=== PATIENT | male | born 1985 | race Caucasian/White ===

== ENCOUNTER 2017-09-09 08:18 | Day surgery (SDC) | payer OTHER ==
--- NOTE | 2017-09-06 09:15 | EKG REPORT ---
SEVERITY:- ABNORMAL ECG - SINUS RHYTHM PROBABLE LEFT VENTRICULAR HYPERTROPHY : Confirmed by: Dorinda Lopez MD 06-Sep-2017 09:15:13
[2017-09-06 09:57] LABS: HEMOGLOBIN 15.7 g/dL (13.5-17.0); MEAN CORPUSCULAR HEMOGLOBIN 30.3 pg (27.0-33.4); MEAN CORPUSCULAR VOLUME 89 fl (80-97); PLATELET COUNT 357 10^3/uL (150-450); RED BLOOD COUNT 5.17 10^6/uL (4.35-5.55); RED CELL DISTRIBUTION WIDTH 13.2 % (11.5-14.0); WHITE BLOOD COUNT 7.4 10^3/uL (4.0-10.5)
--- NOTE | 2017-09-06 09:57 | RADIOLOGY REPORT (SQ) ---
EXAM DESCRIPTION: CHEST PA/LATERAL COMPLETED DATE/TIME: 09/06/2017 9:38 am REASON FOR STUDY: PRE-OP COMPARISON: None. EXAM PARAMETERS: NUMBER OF VIEWS: two views TECHNIQUE: Digital Frontal and Lateral radiographic views of the chest acquired. RADIATION DOSE: NA LIMITATIONS: none FINDINGS: LUNGS AND PLEURA: No opacities, masses or pneumothorax. No pleural effusion. MEDIASTINUM AND HILAR STRUCTURES: No masses or contour abnormalities. HEART AND VASCULAR STRUCTURES: Heart normal size. No evidence for failure. BONES: No acute findings. HARDWARE: None in the chest. OTHER: No other significant finding. IMPRESSION: NO SIGNIFICANT RADIOGRAPHIC FINDING IN THE CHEST. TECHNICAL DOCUMENTATION: JOB ID: [id number] [employer]- All Rights Reserved Reading location - IP/workstation name: [email or web address]
[2017-09-06 10:00] LABS: APPEARANCE,URINE TURBID; BILIRUBIN,URINE NEGATIVE (NEGATIVE); GLUCOSE, URINE NEGATIVE (NEGATIVE); KETONES,URINE NEGATIVE (NEGATIVE); LEUKOCYTE ESTERASE,URINE NEGATIVE (NEGATIVE); NITRITE,URINE NEGATIVE (NEGATIVE); PROTEIN,URINE 30 mg/dL (NEGATIVE); URINE SPECIFIC GRAVITY 1.023
[2017-09-06 10:02] LABS: COLOR,URINE YELLOW
[2017-09-06 10:20] LABS: ANION GAP 14 (5-19); BLOOD UREA NITROGEN 18 mg/dL (7-20); CARBON DIOXIDE 28 mmol/L (22-30); CHLORIDE 102 mmol/L (98-107); GLUCOSE 99 mg/dL (75-110); POTASSIUM 4.3 mmol/L (3.6-5.0); SODIUM 143.9 mmol/L (137-145)
[~2017-09-09 08:18] MED LIST: CEFAZOLIN 2 GM/D5W RTU 2 GM/50 ML RTUPB IV PRN; LACTATED RINGERS 1000 ML IV PRN; LIDOCAINE 0.5% INJ-PF (5 MG/ML) 50 ML SDV SUBCUT PRN
[2017-09-09] MEDS ORDERED: PROPOFOL INJ 200 MG/20 ML VIAL IV ONE (09:50)
[2017-09-09] MEDS ORDERED: ACETAMINOPHEN 1,000 MG/100 ML RTUPB IV ONE (09:50)
[2017-09-09] MEDS ORDERED: FENTANYL CITRATE INJ/PF 100 MCG/2 ML AMPUL ONE (09:50)
[2017-09-09] MEDS ORDERED: MIDAZOLAM 2 MG/2 ML INJ ONE (09:50)
[2017-09-09] MEDS ORDERED: ONDANSETRON HCL INJ/PF 4 MG/2 ML SDV ONE (09:50)
[2017-09-09] MEDS ORDERED: BUPIVACAINE HCL/DEX-WATER/PF 15 MG/2 ML AMPULE ONE (10:32)
[2017-09-09] MEDS ORDERED: OXYCODONE-ACETAMINOPHEN 5-325 MG TABLET PO PRN ×2 (11:03)
[2017-09-09] MEDS ORDERED: DIPHENHYDRAMINE HCL 50 MG/ML VIAL IV PRN (11:03)
[2017-09-09] MEDS ORDERED: PROMETHAZINE HCL INJ 25 MG/1 ML VIAL IV PRN ×2 (11:03)
[2017-09-09] MEDS ORDERED: MORPHINE SULFATE 10 MG/ML INJ IV PRN (11:03)
[2017-09-09] MEDS ORDERED: ONDANSETRON HCL INJ/PF 4 MG/2 ML SDV IV PRN (11:03)
[2017-09-09] MEDS ORDERED: MEPERIDINE HCL/PF INJ 25 MG/1 ML DISP.SYRIN IV PRN (11:03)
[2017-09-09] MEDS ORDERED: FENTANYL CITRATE INJ/PF 100 MCG/2 ML AMPUL IV PRN ×3 (11:03)
--- NOTE | 2017-09-09 11:35 | Discharge Summary ---
Discharge Summary (SDC) - Discharge Final Diagnosis: Left calcaneal fracture Date of Surgery: 09/09/17 Discharge Date: 09/09/17 Condition: Good Treatment or Instructions: Touchdown weightbearing restriction left lower extremity Prescriptions: Oxycodone HCl/Acetaminophen [Percocet 5-325 mg Tablet] 2 tab PO Q6 #60 tablet Discharge Diet: As Tolerated, Regular Respiratory Treatments at Home: Deep Breathing/Coughing Discharge Activity: Balance Activity w/Rest, No tub bath Home Care Assistance: None Needed Report the Following to Your Physician Immediately: Shortness of Breath, Fever over 101 Degrees, Drainage-Foul Smelling
--- NOTE | 2017-09-09 11:38 | Operative Report ---
Operative Report DATE OF SURGERY: 09/09/17 PREOPERATIVE DIAGNOSIS: Left calcaneal fracture OPERATION: Open reduction internal fixation left calcaneal fracture SURGEON: HARLAN MEJIA ANESTHESIA: Spinal ESTIMATED BLOOD LOSS: Minimal PROCEDURE: The patient in a right lateral decubitus position on the operative table left lower extremities prepped and draped in sterile fashion. Limb was elevated for exsanguination tourniquet inflated 280 torr. A curvilinear incision made over the plantar and posterior aspects of the lateral calcaneus and sharp dissection was carried incision down to the underlying bone. The soft tissues raise is a single flap with the periosteum and the skin containing the intervening subcutaneous fat. The periosteal elevation is carried up to the level of the subtalar joint. 3 pins are then placed to retract the soft tissue. A Steinmann pin is next placed into the plantar aspect of the posterior calcaneus. This is distracted as the posterior wall is impacted to reduce the fracture and re-create Boehler's angle. There was a fragment identified on CT scan that seem to be an escaped articular fragment that is posterior to the posterior aspect of the subtalar joint. This is surgery for with laminar spreaders and not found. A [place] titanium lateral calcaneal plate is then placed onto the lateral surface the calcaneus and secured with a number of screws. Is evaluated in both AP, lateral, and a Marin heel view for fracture reduction and hardware placement. Both of which appear to be satisfactory. The tourniquet is deflated. Hemostasis obtained with electrocautery. The wound is irrigated with bulb lavage. Subsequent closed in layers interrupted Vicryl followed by nylon. A sterile compressive dressing and posterior plaster splint were applied and patient's return to PACU in satisfactory condition.
[2017-09-09] MEDS ORDERED: OXYCODONE HCL IR 5 MG TABLET PO PRN (12:16)
[2017-09-09] MEDS ORDERED: ONDANSETRON 4 MG TAB.RAPDIS SL PRN (12:16)
--- NOTE | 2017-09-09 13:53 | RADIOLOGY REPORT (SQ) ---
EXAM DESCRIPTION: NO CHG FLUORO; OS CALCIS/HEEL LEFT COMPLETED DATE/TIME: 09/09/2017 1:21 pm REASON FOR STUDY: ORIF LEFT CALCANEOUS ASST WITH FLUORO IN OR S92.009A UNSP FRACTURE OF UNSP CALCAN EUS, INIT FOR CLOS FX COMPARISON: None. FLUOROSCOPY TIME: 0.5 minutes. 4 images saved to PACS. TECHNIQUE: Intra-operative images acquired during surgical procedure to evaluate progress. NUMBER OF IMAGES: 4 images. LIMITATIONS: None. FINDINGS: Images of the calcaneus with surgical hardware in place. IMPRESSION: IMAGE(S) OBTAINED DURING PROCEDURE. COMMENT: Quality ID [id number]: Final reports for procedures using fluoroscopy that document radiation exp osure indices, or exposure time and number of fluorographic images (if radiation exposure indices are not available) Please consult full operative report of the attending physician for description of the procedure. TECHNICAL DOCUMENTATION: JOB ID: [id number] [employer]- All Rights Reserved Reading location - IP/workstation name: [email or web address]
--- NOTE | 2017-09-09 13:53 | RADIOLOGY REPORT (SQ) ---
EXAM DESCRIPTION: NO CHG FLUORO; OS CALCIS/HEEL LEFT COMPLETED DATE/TIME: 09/09/2017 1:21 pm REASON FOR STUDY: ORIF LEFT CALCANEOUS ASST WITH FLUORO IN OR S92.009A UNSP FRACTURE OF UNSP CALCAN EUS, INIT FOR CLOS FX COMPARISON: None. FLUOROSCOPY TIME: 0.5 minutes. 4 images saved to PACS. TECHNIQUE: Intra-operative images acquired during surgical procedure to evaluate progress. NUMBER OF IMAGES: 4 images. LIMITATIONS: None. FINDINGS: Images of the calcaneus with surgical hardware in place. IMPRESSION: IMAGE(S) OBTAINED DURING PROCEDURE. COMMENT: Quality ID [id number]: Final reports for procedures using fluoroscopy that document radiation exp osure indices, or exposure time and number of fluorographic images (if radiation exposure indices are not available) Please consult full operative report of the attending physician for description of the procedure. TECHNICAL DOCUMENTATION: JOB ID: [id number] [employer]- All Rights Reserved Reading location - IP/workstation name: [email or web address]
[2017-09-09] MEDS ORDERED: GLYCOPYRROLATE 1 MG/5 ML SYRINGE ONE (15:26)
[2017-09-09 17:56] VITALS: BP 112/73
== END 2017-09-09 17:50 | disposition home or self-care (01) ==
LOC: OROUT 08:18
PROVIDERS: ATTEND Orthopaedic Surgery
DX: S92.062A Displaced intraarticular fracture of left calcaneus, initial encounter for closed fracture (principal); W11.XXXA Fall on and from ladder, initial encounter; Z87.891 Personal history of nicotine dependence; Z79.899 Other long term (current) drug therapy
CPT/HCPCS: 93005; 36415; 85027; 80048; 81001; 71046; 73650; 93010; 28415; C1781; C1713 ×9; J2250; J3490 ×2; J3010; J2405; J2704; J0690; J0131; 01480